=== PATIENT | male | born 1965 | race Caucasian/White ===

== ENCOUNTER 2017-07-27 10:37 | Emergency (ER) | payer MEDICAID ==
[~2017-07-27] VITALS: Ht 190.5 cm; Wt 93.0 kg
[2017-07-27 11:35] LABS: Basophils # (auto) 0.1 uL; Basophils % (auto) 0.8 % (0.0-2.0); Eosinophils # (auto) 0.1 uL; Eosinophils % (auto) 1.5 % (0.0-7.0); Hematocrit 47.3 % (41.0-53.0); Hemoglobin 16.3 g/dL (13.5-17.5); Lymphocytes # (auto) 1.7 uL; Lymphocytes % (auto) 24.5 % (10.0-50.0); Mean Corpuscular Hemoglobin 33.8 pg (28.0-32.0); Mean Corpuscular Hgb Conc. 34.6 g/dL (32.0-36.0); Mean Corpuscular Volume 97.6 fL (80.0-100.0); Monocytes # (auto) 0.9 uL; Monocytes % (auto) 12.9 % (0.0-12.0); Neutrophils # (auto) 4.2 uL; Neutrophils % (auto) 60.3 % (37.0-80.0); Nucleated Red Blood Cells % 0.1 %; Platelet Count (auto) 207 10^3/uL (140-450); Red Blood Cells 4.84 10^6/uL (4.5-5.90); Red Cell Distribution Width 13.3 % (11.8-14.3)
[2017-07-27 12:24] LABS: Alanine Aminotransferase 45 U/L (16-61); Albumin 4.3 g/dL (3.4-5.0); Alkaline Phosphatase 52 U/L (45-117); Anion Gap 14 (5-15); Aspartate Aminotransferase 44 U/L (15-37); BUN/Creatinine Ratio 8.5; Bilirubin, Total 1.5 mg/dL (0.2-1.0); Blood Urea Nitrogen 9 mg/dL (7-18); Calcium 9.2 mg/dL (8.5-10.1); Carbon Dioxide 20 mmol/L (21-32); Chloride 102 mmol/L (98-107); GFR African American 94 mL/min; GFR Non-African American 78 mL/min; Glucose 127 mg/dL (74-106); Potassium 3.8 mmol/L (3.5-5.1); Sodium 136 mmol/L (136-145); Total Protein 8.3 g/dL (6.4-8.2)
[2017-07-27] MEDS ORDERED: ASPirin 81 mg TAB PO ONE (18:30)
[2017-07-27] MEDS ORDERED: CYCLOBENZAPRINE HCL 10 MG TAB PO ONE (19:15)
[2017-07-27] MEDS ORDERED: HYDROcodone-ACET 5/325MG TAB PO ONE (19:15)
[2017-07-27 19:47] VITALS: BP 151/102
[2017-07-27] MEDS ORDERED: IOHEXOL 350 MG/ML 100ML IJ ONE (21:37)
== END 2017-07-27 22:07 | disposition home or self-care (01) ==
LOC: ER 10:37
DX: R07.89 Other chest pain (principal); M62.830 Muscle spasm of back; F17.210 Nicotine dependence, cigarettes, uncomplicated; Z79.82 Long term (current) use of aspirin
CPT/HCPCS: 36415; 71046; 80053; 83735; 84484; 85025; 85379; 93005